=== PATIENT | male | born 1970 | race Caucasian/White ===

== ENCOUNTER 2016-06-01 23:03 | Emergency (ER) | payer OTHER ==
[~2016-06-01] VITALS: Ht 182.8 cm; Wt 96.2 kg
[~2016-06-01 23:03] MED LIST: AMLODIPINE BESY10 MG PO; ANAPROX DS550 MG PO; CLEOCIN HCL150 MG PO; COMPAZINE10 MG PO; DAYPRO600 M1 PO; LOPRESSOR100 MG PO; MIRTAZAPINE30 MG PO; NICOTINE POLACRI2 MG PO; NICOTINE21 MG/24 H TD; ROBAXIN750 MG PO; SELSUN SULFIDE120 ML TP; SIMVASTATIN40 MG PO; ULTRAM50 MG PO; VICODIN 500 MG-1 TAB PO; ZANTAC150 MG PO
[2016-06-01 23:15] VITALS: BP 143/83
[2016-06-01 23:56] LABS: BASO # 0.1 10*3/uL (0.0-0.1); BASO % 0.7 % (0.0-1.0); EOS # 0.2 10*3/uL (0.0-0.4); EOS % 3.1 % (1.0-4.0); HEMATOCRIT 39.2 % (42.0-52.0); HEMOGLOBIN 13.9 g/dl (14.0-18.0); LYMPH # 2.3 10*3/uL (1.3-4.4); LYMPH % 32.6 % (27.0-41.0); MEAN CELL VOLUME 88.3 fl (80.0-94.0); MEAN CORPUSCULAR HGB 31.3 pg (27.0-31.0); MEAN CORPUSCULAR HGB CONC 35.5 g/dl (33.0-37.0); MEAN PLATELET VOLUME 12.5 fl (9.6-12.3); MONO # 0.4 10*3/uL (0.1-1.0); NEUT # 4.1 10*3/uL (2.3-7.9); NEUT % 58.2 % (47.0-73.0); PLATELET COUNT AUTOMATED 201 10*3/uL (130-400); RED BLOOD COUNT 4.44 10*6/uL (4.50-5.90); RED CELL DISTRI WIDTH 12.2 % (0-14.5)
[2016-06-02 00:08] LABS: BUN 9 mg/dl (7-24); CARBON DIOXIDE 25 mmol/L (21-32); CHLORIDE 104 mmol/L (98-107); EST GLOM FILT AFRICAN AMERICAN > 60 ml/min; GLUCOSE 233 mg/dL (65-99); POTASSIUM 3.9 mmol/L (3.5-5.1); SODIUM 138 mmol/L (136-145)
[2016-06-02] MEDS ORDERED: KETOROLAC10 MG PO (00:47)
[2016-06-02 01:05] LABS: BILIRUBIN NEGATIVE (NEGATIVE); BLOOD NEGATIVE (NEGATIVE); CLARITY CLEAR (CLEAR); COLOR YELLOW (YELLOW); GLUCOSE 1+ (NEGATIVE); KETONE NEGATIVE (NEGATIVE); LEUKO ESTERASE NEGATIVE (NEGATIVE); NITRITE NEGATIVE (NEGATIVE); PH 5.5 (5.0-9.0); PROTEIN TRACE (NEGATIVE); SPECIFIC GRAVITY >= 1.030 (1.005-1.030); UROBILINOGEN 0.2 E.U./dl (0.2-1.0)
[2016-06-02 01:11] LABS: BACTERIA 1+; URINE REFLEX COMMENT NO (NO)
== END 2016-06-02 01:19 | disposition home or self-care (01) ==
LOC: ED 23:03
PROVIDERS: Emergency Medicine Emergency Medical Services; Family Medicine
DX: G43.909 Migraine, unspecified, not intractable, without status migrainosus (principal); M54.5 Low back pain; I10 Essential (primary) hypertension; Z79.899 Other long term (current) drug therapy

== ENCOUNTER 2019-06-29 22:29 | Emergency (ER) | payer OTHER ==
[~2019-06-29] VITALS: Ht 182.8 cm; Wt 99.8 kg
[~2019-06-29 22:29] MED LIST changes: +KETOROLAC10 MG PO
[2019-06-29 22:34] VITALS: BP 153/86
[2019-06-29] MEDS ORDERED: PERCOCET 7.5-31 EACH PO (22:43)
== END 2019-06-30 00:54 | disposition home or self-care (01) ==
LOC: ED 22:29
DX: S82.302A Unspecified fracture of lower end of left tibia, initial encounter for closed fracture (principal); Z88.0 Allergy status to penicillin; Z79.899 Other long term (current) drug therapy; W19.XXXA Unspecified fall, initial encounter; Y93.89 Activity, other specified; Y92.89 Other specified places as the place of occurrence of the external cause; Y99.8 Other external cause status

== ENCOUNTER 2020-04-28 15:11 | Inpatient (IN) | payer OTHER ==
[~2020-04-28] VITALS: Ht 182.8 cm; Wt 86.2 kg
[~2020-04-28 15:11] MED LIST changes: +PERCOCET 7.5-31 EACH PO
[2020-04-28] MEDS ORDERED: METFORMIN HYDR500 MG PO (15:21)
[2020-04-28 15:40] LABS: BASO % 0.4 % (0.0-1.0); EOS # 0.1 10*3/uL (0.0-0.4); EOS % 1.1 % (1.0-4.0); HEMATOCRIT 45.5 % (42.0-52.0); LYMPH # 2.9 10*3/uL (1.3-4.4); LYMPH % 29.4 % (27.0-41.0); MEAN CELL VOLUME 86.7 fl (80.0-94.0); MEAN CORPUSCULAR HGB 30.1 pg (27.0-31.0); MEAN CORPUSCULAR HGB CONC 34.7 g/dl (33.0-37.0); MEAN PLATELET VOLUME 12.2 fl (9.6-12.3); MONO # 0.5 10*3/uL (0.1-1.0); MONO % 4.8 % (3.0-9.0); NEUT # 6.4 10*3/uL (2.3-7.9); PLATELET COUNT AUTOMATED 210 10*3/uL (130-400); RED BLOOD COUNT 5.25 10*6/uL (4.50-5.90); RED CELL DISTRI WIDTH 12.2 % (0-14.5)
[2020-04-28 15:50] LABS: ACT PARTIAL THROMBO TIME 28.8 SECONDS (20.0-32.1)
[2020-04-28 15:57] LABS: ALBUMIN 4.2 gm/dl (3.1-4.5); ALKALINE PHOSPHATASE 117 U/L (45-117); BUN 17 mg/dl (7-24); CHLORIDE 99 mmol/L (98-107); CREATININE 1.09 mg/dL (0.70-1.30); POTASSIUM 3.7 mmol/L (3.5-5.1); SGOT/AST 47 IU/L (3-35); SGPT/ALT 67 U/L (12-78); SODIUM 133 mmol/L (136-145); TOTAL PROTEIN 8.4 gm/dL (6.4-8.2)
[2020-04-28 16:01] VITALS: BP 138/92
[2020-04-28 16:32] VITALS: BP 140/84
[2020-04-28 17:41] VITALS: BP 147/107
[2020-04-28 18:35] VITALS: BP 151/88
[2020-04-28 20:00] VITALS: BP 120/83
[2020-04-28 21:23] VITALS: BP 123/85
[2020-04-29] VITALS: BP 123/90; BP 126/90; BP 147/94
[2020-04-29 00:10] VITALS: BP 134/82
[2020-04-29 06:55] LABS: BASO % 0.5 % (0.0-1.0); EOS # 0.1 10*3/uL (0.0-0.4); EOS % 1.5 % (1.0-4.0); HEMATOCRIT 42.6 % (42.0-52.0); LYMPH # 2.9 10*3/uL (1.3-4.4); LYMPH % 38.9 % (27.0-41.0); MEAN CELL VOLUME 89.3 fl (80.0-94.0); MEAN CORPUSCULAR HGB CONC 33.6 g/dl (33.0-37.0); MEAN PLATELET VOLUME 12.5 fl (9.6-12.3); MONO # 0.4 10*3/uL (0.1-1.0); NEUT % 53.6 % (47.0-73.0); PLATELET COUNT AUTOMATED 199 10*3/uL (130-400); RED BLOOD COUNT 4.77 10*6/uL (4.50-5.90); RED CELL DISTRI WIDTH 12.5 % (0-14.5); WHITE BLOOD COUNT 7.5 10*3/uL (4.8-10.8)
[2020-04-29 07:26] LABS: ALBUMIN 3.7 gm/dl (3.1-4.5); BUN 14 mg/dl (7-24); CHLORIDE 103 mmol/L (98-107); CHOLESTEROL 263 mg/dL (<200); POTASSIUM 3.9 mmol/L (3.5-5.1); SODIUM 137 mmol/L (136-145)
[2020-04-29 07:35] LABS: ALKALINE PHOSPHATASE 104 U/L (45-117); CREATININE 0.91 mg/dL (0.70-1.30); FREE T4 1.07 ng/dl (0.76-1.46); HDL CHOLESTEROL 32 mg/dl (40-60); SGOT/AST 48 IU/L (3-35); SGPT/ALT 63 U/L (12-78); TOTAL PROTEIN 7.7 gm/dL (6.4-8.2); TRIGLYCERIDES 438 mg/dl (<150)
[2020-04-29 07:55] LABS: VITAMIN D, 25-HYDROXY 17.8 ng/mL (30-100)
[2020-04-29 08:00] VITALS: BP 142/8
[2020-04-29 12:00] VITALS: BP 147/91
[2020-04-29] MEDS ORDERED: ASPIRIN ADULT L81 M2 PO (14:51)
[2020-04-29] MEDS ORDERED: LISINOPRIL10 M1 PO (14:51)
[2020-04-29] MEDS ORDERED: ATORVASTATIN CA40 M1 PO (14:51)
[2020-04-29] MEDS ORDERED: LOPRESSOR25 MG PO (14:51)
[2020-04-29 16:00] VITALS: BP 139/86
[2020-04-29 20:00] VITALS: BP 130/92
[2020-04-30] VITALS: BP 129/94
[2020-04-30] MEDS ORDERED: PERCOCET 7.5-31 EACH PO (00:41)
[2020-04-30 04:00] VITALS: BP 128/82
[2020-04-30 06:11] LABS: BUN 13 mg/dl (7-24); CHLORIDE 100 mmol/L (98-107); CREATININE 1.01 mg/dL (0.70-1.30); POTASSIUM 4.3 mmol/L (3.5-5.1); SODIUM 135 mmol/L (136-145)
[2020-04-30 06:17] LABS: BASO % 0.6 % (0.0-1.0); EOS # 0.1 10*3/uL (0.0-0.4); EOS % 1.4 % (1.0-4.0); LYMPH # 2.2 10*3/uL (1.3-4.4); LYMPH % 30.3 % (27.0-41.0); MEAN CELL VOLUME 88.8 fl (80.0-94.0); MEAN CORPUSCULAR HGB CONC 33.8 g/dl (33.0-37.0); MEAN PLATELET VOLUME 12.6 fl (9.6-12.3); MONO # 0.4 10*3/uL (0.1-1.0); MONO % 5.2 % (3.0-9.0); NEUT # 4.5 10*3/uL (2.3-7.9); NEUT % 61.9 % (47.0-73.0); PLATELET COUNT AUTOMATED 225 10*3/uL (130-400); RED BLOOD COUNT 4.73 10*6/uL (4.50-5.90); RED CELL DISTRI WIDTH 12.2 % (0-14.5); WHITE BLOOD COUNT 7.2 10*3/uL (4.8-10.8)
[2020-04-30 12:00] VITALS: BP 126/67
[2020-04-30 16:00] VITALS: BP 134/84
[2020-04-30 20:00] VITALS: BP 123/78
== END 2020-04-30 20:46 | DRG 281 ==
LOC: ED 15:11 → EDHOLD 18:27 → 5E 18:27
PROVIDERS: Emergency Medicine; Internal Medicine; ADMIT Family Medicine; ATTEND Family Medicine
DX: I21.4 Non-ST elevation (NSTEMI) myocardial infarction (principal); E87.1 Hypo-osmolality and hyponatremia; F43.10 Post-traumatic stress disorder, unspecified; R74.01 Elevation of levels of liver transaminase levels; G44.009 Cluster headache syndrome, unspecified, not intractable; I10 Essential (primary) hypertension; E78.5 Hyperlipidemia, unspecified; E11.65 Type 2 diabetes mellitus with hyperglycemia; E66.3 Overweight; E11.42 Type 2 diabetes mellitus with diabetic polyneuropathy; Z88.8 Allergy status to other drugs, medicaments and biological substances; Z79.899 Other long term (current) drug therapy; Z79.82 Long term (current) use of aspirin; Z82.49 Family history of ischemic heart disease and other diseases of the circulatory system; Z68.25 Body mass index [BMI] 25.0-25.9, adult

== ENCOUNTER 2022-02-13 00:39 | Emergency (ER) | payer OTHER ==
[~2022-02-13] VITALS: Ht 182.8 cm; Wt 78.5 kg
[~2022-02-13 00:39] MED LIST changes: +ASPIRIN ADULT L81 M2 PO; +ATORVASTATIN CA40 M1 PO; +LISINOPRIL10 M1 PO; +LOPRESSOR25 MG PO; +METFORMIN HYDR500 MG PO
[2022-02-13 00:53] VITALS: BP 163/106
[2022-02-13 00:59] LABS: BASO % 0.5 % (0.0-1.0); EOS # 0.2 10*3/uL (0.0-0.4); EOS % 2.6 % (1.0-4.0); HEMATOCRIT 39.6 % (42.0-52.0); LYMPH % 24.9 % (27.0-41.0); MEAN CELL VOLUME 89.8 fl (80.0-94.0); MEAN CORPUSCULAR HGB 30.6 pg (27.0-31.0); MEAN CORPUSCULAR HGB CONC 34.1 g/dl (33.0-37.0); MEAN PLATELET VOLUME 12.1 fl (9.6-12.3); MONO # 0.4 10*3/uL (0.1-1.0); MONO % 4.9 % (3.0-9.0); NEUT # 5.4 10*3/uL (2.3-7.9); NEUT % 66.7 % (47.0-73.0); PLATELET COUNT AUTOMATED 156 10*3/uL (130-400); RED BLOOD COUNT 4.41 10*6/uL (4.50-5.90); RED CELL DISTRI WIDTH 12.4 % (0-14.5)
[2022-02-13 01:50] LABS: ALKALINE PHOSPHATASE 85 U/L (46-116); BUN 8 mg/dl (9-23); CHLORIDE 106 mmol/L (98-107); CREATININE 0.97 mg/dL (0.70-1.30); SGPT/ALT 36 U/L (10-49); SODIUM 140 mmol/L (136-145); TOTAL PROTEIN 7.5 gm/dL (6.0-8.0)
== END 2022-02-13 03:30 | disposition home or self-care (01) ==
LOC: ED 00:39
PROVIDERS: Internal Medicine
DX: R07.9 Chest pain, unspecified (principal); Z88.0 Allergy status to penicillin; Z88.8 Allergy status to other drugs, medicaments and biological substances; Z98.890 Other specified postprocedural states; Z87.891 Personal history of nicotine dependence